=== PATIENT | male | born 1980 | race African-American/Black ===

== ENCOUNTER 2018-03-15 11:44 | Emergency (ER) | payer OTHER ==
[2018-03-15 13:30] LABS: EGFR Non-African American 90.3 (>60)
[2018-03-15 13:51] LABS: ABS Basophils 0 10^3/ul (0-0.2); ABS Eosinophils 0 10^3/ul (0-0.6); ABS Lymphocytes 1.6 10^3/ul (1.0-4.8); ABS Monocytes 0.8 10^3/ul (0-0.8); ABS Neutrophils 6.2 10^3/ul (1.5-7.7); ABS Nucleated RBC 0 10^3/ul; Eosinophil % 0.1 % (0-6); Hematocrit 39 % (42-52); Hemoglobin 13.3 g/dl (14.0-18.0); Lymphocyte % 18.7 % (25-47); Mean Corpuscular HGB Conc 34 g/dl (31-36); Mean Corpuscular Hemoglobin 28 pg (27-31); Mean Corpuscular Volume 82 fL (80-94); Nucleated Red Blood Cells % 0.1; Platelet Count 181 10^3/ul (150-450); Red Blood Count 4.79 10^6/ul (4.0-5.4); Red Cell Distribution Width 14 % (10.5-15); White Blood Count 8.7 10^3/ul (3.5-10.8)
[2018-03-15 14:33] LABS: Urine Appearance Clear; Urine Blood 1+ (Negative); Urine Color Yellow; Urine Ketones Negative (Negative); Urine Protein Negative (Negative); Urine Specific Gravity 1.013 (1.010-1.030); Urine Urobilinogen Negative (Negative)
[2018-03-15] MEDS ORDERED: Iohexol 300* (CONTRAST) 10 ML SDV IV ONE (14:53)
--- NOTE | 2018-03-15 15:24 | RAD ---
Indication: Right lower quadrant pain. Contrast: Administered 124.2 ml of OMNIPAQUE 300 mg/ml CT of the abdomen and pelvis was performed after oral and IV contrast administration. Coronal and sagittal reconstructed images were obtained. Lung bases demonstrate no pleural fluid, nodules or masses. Heart is of normal size without evidence of pericardial effusion. Liver is normal in size. No focal lesions or intrahepatic ductal dilatation is noted. The spleen is normal in size. The gallbladder demonstrates no calcified gallstones, pericholecystic fluid or wall thickening. Pancreas demonstrates no mass or pancreatic duct dilatation. No adrenal lesions are noted. The kidneys demonstrate no focal masses. No retroperitoneal adenopathy is noted. No dilated loops of bowel are noted. CT of the pelvis demonstrates contrast in the right colon. No abnormally dilated loops of bowel are noted. No hernias are noted. Prostate and seminal vesicles are grossly unremarkable. Appendix is visualized and appears normal. IMPRESSION: No evidence of inguinal hernia is noted. Appendix is normal. No other masses or fluid collections are noted. No evidence of bowel obstruction is present.
[2018-03-15] MEDS ORDERED: HYDROcodone/ACETAMIN 5-325 MG* 1 TAB PO ONE (16:14)
[2018-03-15 16:54] VITALS: BP 146/91
--- NOTE | 2018-03-24 14:08 | ED ---
Vijaya Neumann Gabriel, scribed for Kam Mcmanus MD on 03/15/18 at 1237 . Abdominal Pain/Male - HPI Summary HPI Summary: This patient is a 37 year old M BIBA to [facility] accompanied by senior living guards with a chief complaint of RLQ pain that began this morning. Pt states he was doing sit ups when the pain began. The patient rates the pain 10/10 in severity and states it radiates into his groin. Symptoms aggravated by movement. Patient reports back pain. Patient denies visible lump in his groin and n/v/d. No history of kidney stones. - History of Current Complaint Chief Complaint: EDAbdPain Stated Complaint: ABD PAIN Time Seen by Provider: 03/15/18 12:17 Hx Obtained From: Patient Onset/Duration: Lasting Hours, Still Present Timing: Constant Severity Initially: Severe Severity Currently: Severe Pain Intensity: 10 Pain Scale Used: 0-10 Numeric Location: Discrete At: RLQ, Groin Aggravating Factor(s): Movement Associated Signs And Symptoms: Positive: Negative - visible lump in his groin and n/v/d, Other - back pain - Allergies/Home Medications Allergies/Adverse Reactions: Allergies Allergy/AdvReac Type Severity Reaction Status Date / Time No Known Allergies Allergy Unknown Verified 03/15/18 12:08 Reaction Details Home Medications: Home Medications NK [No Home Medications Reported] 03/15/18 [History Confirmed 03/15/18] PMH/Surg Hx/FS Hx/Imm Hx Endocrine/Hematology History: Denies: Hx Bone Marrow Disease, Hx Diabetes, Hx Systemic Lupus Erythematosus , Hx Sickle Cell Disease Cardiovascular History: Denies: Hx Congestive Heart Failure, Hx Coronary Artery Disease, Hx Hypotension, Hx Hypertension, Hx Peripheral Vascular Disease, Hx Supraventricular Ventricular Tachycardia Respiratory History: Denies: Hx Pulmonary Edema, Hx Pulmonary Embolism History: Denies: Hx Kidney Infection, Hx Kidney Stones Neurological History: Denies: Hx Developmental Delay - Surgical History Surgery Procedure, Year, and Place: none Infectious Disease History: No Infectious Disease History: Denies: Traveled Outside the [place] in Last 30 Days - Social History Occupation: Unemployed Lives: Dormitory/Roommates - senior living Alcohol Use: None Substance Use Type: Reports: None Smoking Status (MU): Heavy Every Day Tobacco Smoker Review of Systems Negative: Fever, Chills Negative: Erythema Negative: Sore Throat Negative: Chest Pain Negative: Shortness Of Breath, Cough Positive: Abdominal Pain. Negative: Vomiting, Diarrhea, Nausea Genitourinary: Negative - lump , Other - groin pain Negative: dysuria, hematuria Positive: Other - back pain . Negative: Myalgia, Edema Negative: Rash Neurological: Negative - dizziness All Other Systems Reviewed And Are Negative: Yes Physical Exam - Summary Physical Exam Summary: Constitutional: Well-developed, Well-nourished, Alert. (-) Distressed Skin: Warm, Dry HENT: Normocephalic; Atraumatic Eyes: Conjunctiva normal Neck: Musculoskeletal ROM normal neck. (-) JVD, (-) Stridor, (-) Tracheal deviation Cardio: Rhythm regular, rate normal, Heart sounds normal; Intact distal pulses; The pedal pulses are 2+ and symmetric. Radial pulses are 2+ and symmetric. (-) Murmur Pulmonary/Chest wall: Effort normal. (-) Respiratory distress, (-) Wheezes, (-) Rales Abd: Soft, , (-) Distension, (-) Guarding, (-) Rebound, RLQ tenderness, : right inguinal tenderness, no palpable hernia in inguinal canal lying or standing Musculoskeletal: (-) Edema Lymph: (-) Cervical adenopathy Neuro: Alert, Oriented x3 Psych: Mood and affect Normal Triage Information Reviewed: Yes Vital Signs On Initial Exam: Initial Vitals Temp Pulse Resp BP Pulse Ox 98.7 F 80 20 144/90 99 03/15/18 11:57 03/15/18 11:57 03/15/18 11:57 03/15/18 11:57 03/15/18 11:57 Vital Signs Reviewed: Yes Diagnostics - Vital Signs Vital Signs Temp Pulse Resp BP Pulse Ox 03/15/18 11:57 98.7 F 80 20 144/90 99 - Laboratory Result Diagrams: 03/15/18 12:41 03/15/18 12:41 Lab Statement: Any lab studies that have been ordered have been reviewed, and results considered in the medical decision making process. - CT CT ABD/Pelvis CT Interpretation Completed By: Radiologist - No evidence of inguinal hernia is noted. Appendix is normal. No other masses or fluid collections are noted. No evidence of bowel obstruction is present. ED physician has reviewed this radiology report. Re-Evaluation - Re-Evaluation First Eval Re-Evaluation Time: 16:14 Change: Improved Comment: Pt's pain has resolved, he only has pain when he flexs at the waist. I discussed test results with the patient and discharge. Both him and the guards understand. Abdominal Pain Fem Course/Dx - Course Assessment/Plan: This patient is a 37 year old M BIBA to [facility] accompanied by senior living guards with a chief complaint of RLQ pain that began this morning. Pt states he was doing sit ups when the pain began. The patient rates the pain 10/ 10 in severity and states it radiates into his groin. Symptoms aggravated by movement. Patient reports back pain. Patient denies visible lump in his groin and n/v/d. No history of kidney stones. CT ABD/pelvis reveals, per radiologist , No evidence of inguinal hernia is noted. Appendix is normal. No other masses. or fluid collections are noted. No evidence of bowel obstruction is present. Test results with no significant abnormalities except for a UA showing hematuria. In the ED course the patient was given norco. Dx abdominal strain and hematuria. Given the hematuria I consider stone disease even though the CT was negative. Patient will be discharged and follow up from prisons doctor. The patient is agreeable with this plan. - Diagnoses Differential Diagnosis/HQI/PQRI: Other - abdominal strain, femoral hernia, inguinal hernia Provider Diagnoses: Hematuria, Abdominal muscle strain Discharge - Sign-Out/Discharge Documenting (check all that apply): Discharge - Discharge Plan Condition: Stable Disposition: HOME Patient Education Materials: Muscle Strain (DC), Groin Strain (ED) Referrals: Samantha RICHMOND,Kortney Goodman [Primary Care Provider] - 2 Days Additional Instructions: The patient should be taking Tylenol and Motrin for pain. Also he can use a heating pad as needed for pain. He should see the doctor in the senior living in 2-3 days for follow up. RETURN TO THE EMERGENCY DEPARTMENT FOR CHANGING OR WORSENING SYMPTOMS. The documentation as recorded by the Vijaya lawson Gabriel accurately reflects the service I personally performed and the decisions made by me, Kam Mcmanus MD.
== END 2018-03-15 16:52 | disposition home or self-care (01) ==
LOC: ED 11:44
DX: S39.011A Strain of muscle, fascia and tendon of abdomen, initial encounter (principal); X58.XXXA Exposure to other specified factors, initial encounter; Y92.149 Unspecified place in prison as the place of occurrence of the external cause; R31.9 Hematuria, unspecified; F17.210 Nicotine dependence, cigarettes, uncomplicated
CPT/HCPCS: 36415; 74177; 80053; 81003; 81015; 83605; 83690; 85025; 86140; 87086; 99282; Q9967